=== PATIENT | male | born 1995 | race Caucasian/White ===

== ENCOUNTER 2017-01-18 17:45 | Emergency (ER) | payer OTHER ==
[2017-01-18 18:35] LABS: BILIRUBIN,URINE NEGATIVE (NEGATIVE)
[2017-01-18 18:37] LABS: UA CHARGE (STRIP ONLY) YES; UR CULTURE IF IND NOT INDICATED
[2017-01-18] MEDS ORDERED: cefTRIAXone 250 MG VIAL IM STA (19:00)
[2017-01-18] MEDS ORDERED: AZITHROMYCIN 250 MG TABLET PO STA (19:00)
--- NOTE | 2017-01-18 19:01 | ED Physician Documentation ---
PD HPI MALE - Stated complaint Stated Complaint: MALE - Chief complaint Chief Complaint: Abd Pain - History obtained from History obtained from: Patient - History of Present Illness Timing - onset: How many days ago (2) Timing - duration: Days (2) Timing - details: Gradual onset Pain level max: 2 Pain level now: 2 Associated symptoms: Dysuria, Discharge (white) PD HPI MALE CONTRIB FACTORS: Sexually active, Exposed to STD Similar symptoms before: Has not had sx before Recently seen: Not recently seen Review of Systems Constitutional: denies: Fever, Chills GI: denies: Abdominal Pain, Vomiting : reports: Discharge (white). denies: Testicular pain, Testicular mass Skin: denies: Rash Musculoskeletal: denies: Neck pain, Back pain Neurologic: denies: Headache PD PAST MEDICAL HISTORY - Past Medical History Past Medical History: No Cardiovascular: None Respiratory: None Neuro: None Endocrine/Autoimmune: None GI: None : None HEENT: None Psych: None Musculoskeletal: None Derm: None - Past Surgical History Past Surgical History: No - Present Medications Home Medications: Ambulatory Orders Medication Instructions Recorded Confirmed Trazodone HCl 50 mg PO DAILY PM 01/18/17 01/18/17 - Allergies Allergies/Adverse Reactions: Allergies Allergy/AdvReac Type Severity Reaction Status Date / Time No Known Drug Allergies Allergy Verified 08/10/14 02:07 - Social History Does the pt smoke?: No Smoking Status: Never smoker Does the pt drink ETOH?: No Does the pt have substance abuse?: No - Immunizations Immunizations are current?: Yes - POLST Patient has POLST: No PD ED PE NORMAL - Vitals Vital signs reviewed: Yes - General General: Alert and oriented X 3, No acute distress - Abdomen Abdomen: Soft, Non tender, Non distended - Male Male : Other (white discharge expressed from the urethral meatus. No lymphadenopathy. No rashes, no testicular tenderness. ) - Derm Derm: Warm and dry - Neuro Neuro: Alert and oriented X 3 - Psych Psych: Normal mood, Normal affect Results - Vitals Vitals: Vital Signs - 24 hr 01/18/17 01/18/17 17:48 19:16 Temperature 36.9 C Heart Rate 143 H 102 H Respiratory 16 20 Rate Blood Pressure 142/85 H 155/93 H O2 Saturation 91 L 97 Oxygen O2 Source Room air - Labs Labs: Laboratory Tests 01/18/17 18:21 Urine Color YELLOW Urine Clarity CLEAR Urine pH 7.0 Ur Specific [place] 1.020 Urine Protein NEGATIVE Urine Glucose (UA) NEGATIVE Urine Ketones TRACE Urine Occult Blood TRACE-INTA Urine Nitrite NEGATIVE Urine Bilirubin NEGATIVE Urine Urobilinogen 0.2 (NORMAL) Ur Leukocyte Esterase NEGATIVE Ur Microscopic Review NOT INDICATED Urine Culture Comments NOT INDICATED PD MEDICAL DECISION MAKING - ED course Complexity details: considered differential, d/w patient ED course: Patient is a 21-year-old male who presents to the emergency department with symptoms concerning for sexually transmitted infection. Likely gonorrhea and/ or chlamydia. Given Rocephin and azithromycin here. We will have him follow- up with his PCP for further testing. Patient informed that he should also be tested for other STDs as well as HIV. Patient counseled regarding signs and symptoms for which I believe and urgent re-evaluation would be necessary. Patient with good understanding of and agreement to plan and is comfortable going home at this time This document was made in part using voice recognition software. While efforts are made to proofread this document, sound alike and grammatical errors may occur. Departure - Departure Disposition: 01 Home, Self Care Clinical Impression: STD (sexually transmitted disease) Condition: Good Instructions: ED STD Male Treated Follow-Up: your,doctor in 1 week [Other] Comments: Your urine was sent for gonorrhea and Chlamydia testing today. Use condoms for sexual activity. Your partner(s) should also be tested and treated. Your blood pressure was elevated today on check in to the emergency department. This does not mean that you have hypertension, it is a common phenomenon to check into the emergency department and have elevated blood pressure. I recommend that you see your primary care physician within the week to have it rechecked when you're feeling better. Discharge Date/Time: 01/18/17 19:54
[2017-01-18 19:17] VITALS: BP 155/93
[2017-01-18] MEDS ORDERED: AZITHROMYCIN 250 MG TABLET PO ONE (19:28)
[2017-01-18] MEDS ORDERED: cefTRIAXone 250 MG VIAL ONE (19:28)
[2017-01-18] MEDS ORDERED: LIDOCAINE 1% 2 ML VIAL ONE (19:28)
== END 2017-01-18 19:54 | disposition home or self-care (01) ==
LOC: ED 17:45
DX: A64 Unspecified sexually transmitted disease (principal); R03.0 Elevated blood-pressure reading, without diagnosis of hypertension
CPT/HCPCS: 81003; 87491; 87591; 96372; 99283; A9270; 81001; 87086

== ENCOUNTER 2017-07-15 19:15 | Emergency (ER) | payer OTHER ==
--- NOTE | 2017-07-15 21:27 | ED Physician Documentation ---
PD HPI SKIN - Stated complaint Stated Complaint: TAILBONE PX - Chief complaint Chief Complaint: Wound - History obtained from History obtained from: Patient - History of Present Illness Timing - onset: How many days ago (4-5) Timing - duration: Days (4-5) Timing - details: Gradual onset, Still present Location: Other (tailbone area) Associated symptoms: No: Fever, Myalgias Similar symptoms before: Has not had sx before Recently seen: Not recently seen Review of Systems Constitutional: denies: Fever, Chills, Myalgias Cardiac: denies: Chest pain / pressure, Palpitations Respiratory: denies: Dyspnea, Cough GI: denies: Nausea, Vomiting PD PAST MEDICAL HISTORY - Past Medical History Past Medical History: Yes Cardiovascular: None Respiratory: None Neuro: None Endocrine/Autoimmune: None GI: None : None HEENT: None Psych: None Musculoskeletal: None Derm: None - Past Surgical History Past Surgical History: Yes - Present Medications Home Medications: Ambulatory Orders Medication Instructions Recorded Confirmed HYDROcod/ACETAM 5/325 [[place] 5/325] 1 tab PO Q6H PRN #15 tablet 07/15/17 Naproxen [Naprosyn] 500 mg PO BID PRN #20 tablet 07/15/17 Sulfamethox/Trimeth 800/160 1 each PO BID #14 tablet 07/15/17 [Bactrim Ds 800/160] - Allergies Allergies/Adverse Reactions: Allergies Allergy/AdvReac Type Severity Reaction Status Date / Time No Known Drug Allergies Allergy Verified 07/15/17 19:25 - Social History Does the pt smoke?: No Smoking Status: Never smoker Does the pt drink ETOH?: No Does the pt have substance abuse?: No - Immunizations Immunizations are current?: Yes - POLST Patient has POLST: No PD ED PE NORMAL - Vitals Vital signs reviewed: Yes - General General: Alert and oriented X 3, No acute distress, Well developed/nourished - Neck Neck: Supple, no meningeal sign, No adenopathy - Abdomen Abdomen: Soft, Non tender - Derm Derm: Normal color, Warm and dry, Other (pilonidal area with redness, swelling, and marked tenderness with fullness/fluctuance just left of midline. C/W abscess. ) Results - Vitals Vitals: Oxygen O2 Source Room air - Labs Labs: Microbiology 07/15/17 22:35 Wound Culture - Final Buttock - Right NORMAL Skin Shari present in culture Procedures - Abscess I&D (location) pilonidal area Preparation: Lidocaine 1%, With epi Incision: Incised with scalpel, Purulent drainage, Irrigated, Culture obtained. No: Packed Other: Pt tolerated well, Dressing applied, Antibiotic prescribed PD MEDICAL DECISION MAKING - ED course Complexity details: re-evaluated patient (feeling better after meds and with decompression of abscess. ), considered differential, d/w patient Departure - Departure Disposition: 01 Home, Self Care Clinical Impression: Pilonidal abscess Condition: Stable Record reviewed to determine appropriate education?: Yes Instructions: ED Cyst Pilonidal Infected IandD Follow-Up: [facility] [Provider Group] Prescriptions: HYDROcod/ACETAM 5/325 [[place] 5/325] 1 tab PO Q6H PRN #15 tablet PRN Reason: Pain Naproxen [Naprosyn] 500 mg PO BID PRN #20 tablet PRN Reason: Pain Sulfamethox/Trimeth 800/160 [Bactrim Ds 800/160] 1 each PO BID #14 tablet Comments: Warm soaks or warm moist compresses to the area 2-3 times a day at least 2 keep the incision open and allow and promote drainage. Bactrim twice daily antibiotic for a week. Use naproxen twice daily anti-inflammatory and for pain. Add Tylenol or hydrocodone if needed for pain. Follow-up with your primary care in 2-3 days, call for an appointment. Forms: Activity restrictions Discharge Date/Time: 07/15/17 23:30
[2017-07-15] MEDS ORDERED: HYDROmorphone 1 MG/ML SYRINGE IVP STA ×2 (21:34→22:32)
[2017-07-15] MEDS ORDERED: KETOROLAC 60 MG/2 ML VIAL IVP STA (21:34)
[2017-07-15] MEDS ORDERED: cefTRIAXone 1 GM in SODIUM CHLORIDE 0.9% MINIBAG 100 ML IV STA (21:34)
[2017-07-15] MEDS ORDERED: HYDROcod/ACET 5/325 Prepack 6 PO STA (23:05)
[2017-07-15 23:15] VITALS: BP 105/49
== END 2017-07-15 23:30 | disposition home or self-care (01) ==
LOC: ED 19:15
DX: L05.01 Pilonidal cyst with abscess (principal)
CPT/HCPCS: 10080; 87070; 87205; 96365; 96375; 99284; J1170; 25605

== ENCOUNTER 2023-12-06 12:16 | Emergency (ER) | payer OTHER ==
--- NOTE | 2023-12-06 14:25 | ED Physician Documentation ---
History of Present Illness - Stated complaint Stated Complaint: MALE - Chief complaint Chief Complaint: General - History obtained from History obtained from: Patient - Additonal information Additional information: 27-year-old gentleman is in a new relationship with another gentleman who does not have symptoms but he developed milky drainage and urethral pain over the last couple of days. He has had gonorrhea twice in the past. PD PAST MEDICAL HISTORY - Past Medical History Past Medical History: No Cardiovascular: None Respiratory: None Endocrine/Autoimmune: None GI: None : None HEENT: None Psych: None Musculoskeletal: None Derm: None - Past Surgical History Past Surgical History: Yes - Present Medications Home Medications: Ambulatory Orders Medication Instructions Recorded Confirmed HYDROcod/ACETAM 5/325 [[place] 5/325] 1 tab PO Q6H PRN #15 tablet 07/15/17 Naproxen [Naprosyn] 500 mg PO BID PRN #20 tablet 07/15/17 Sulfamethox/Trimeth 800/160 1 each PO BID #14 tablet 07/15/17 [Bactrim Ds 800/160] - Allergies Allergies/Adverse Reactions: Allergies Allergy/AdvReac Type Severity Reaction Status Date / Time No Known Drug Allergies Allergy Verified 12/06/23 12:22 - Social History Does the pt smoke?: No Smoking Status: Never smoker Does the pt drink ETOH?: No Does the pt have substance abuse?: No - Immunizations Immunizations are current?: Yes - POLST Patient has POLST: No PD ED PE NORMAL - Vitals Vital signs reviewed: Yes - General General: Alert and oriented X 3, No acute distress - Abdomen Abdomen: Soft, Non tender - Back Back: No CVA TTP, No spinal TTP - Derm Derm: Normal color, Warm and dry Results - Vitals Vitals: Vital Signs - 24 hr 12/06/23 12:22 Temperature 36.8 C Heart Rate 90 Respiratory 16 Rate Blood Pressure 150/90 H O2 Saturation 99 Oxygen O2 Source Room air PD Medical Decision Making - ED course ED course: We discussed treatment regimens for STIs, he is going to an outdoor concert and really does not want to do doxycycline as such received IM Rocephin and p.o. azithromycin. Departure - Departure Disposition: 01 Home, Self Care Clinical Impression: Urethritis Condition: Good Record reviewed to determine appropriate education?: Yes Instructions: ED STD Male Treated Comments: Formal testing for gonorrhea and chlamydia is pending and we will call you if positive, but presume positivity given the symptomatology. He received a shot of ceftriaxone and 1 g of azithromycin here. You should be tested for cure in a couple of weeks.
[2023-12-06] MEDS: AZITHROMYCIN 250 MG TABLET PO STA (14:40)
[2023-12-06] MEDS: cefTRIAXone 500 MG VIAL IM STA (14:41)
[2023-12-06] MEDS: LIDOCAINE 1% 2 ML VIAL MC ONE (14:41)
[2023-12-06 14:52] VITALS: BP 142/86; O2SAT 100
[2023-12-06 20:29] LABS: CHLAMYDIA TRACHOMATIS DNA NEGATIVE (NEGATIVE); NEISSERIA GONORRHOEAE DNA NEGATIVE (NEGATIVE); TRICHOMONAS VAGINALIS DNA NEGATIVE (NEGATIVE)
== END 2023-12-06 14:46 | disposition home or self-care (01) ==
LOC: ED 12:16
DX: N34.2 Other urethritis (principal); Z20.2 Contact with and (suspected) exposure to infections with a predominantly sexual mode of transmission
CPT/HCPCS: 87491; 87591; 87661; 96372; 99283; A9270